=== PATIENT | male | born 1995 | race Caucasian/White ===

== ENCOUNTER 2023-07-03 22:50 | Emergency (ER) | payer SELFPAY ==
[2023-07-03 23:48] VITALS: BP 137/96
== END 2023-07-03 23:48 | disposition home or self-care (01) | DRG 605 ==
LOC: ED 22:50
PROC: 0HQ1XZZ Repair Face Skin, External Approach (ICD-10-PCS; principal; 2023-07-03)
DX: S01.81XA Laceration without foreign body of other part of head, initial encounter (principal); X58.XXXA Exposure to other specified factors, initial encounter; Y93.83 Activity, rough housing and horseplay; Y92.833 Campsite as the place of occurrence of the external cause